=== PATIENT | female | born 1960 | race Caucasian/White ===

== ENCOUNTER 2016-06-30 19:19 | Emergency (ER) | payer OTHER ==
[~2016-06-30] VITALS: Ht 167.6 cm; Wt 73.9 kg
[~2016-06-30 19:19] MED LIST: BUS5 PO; GABA400C PO; LEVO0.124 PO; LISI5TAB18 PO; MECL-272 PO; METF1000 PO; SIMV40TA1 PO
[2016-06-30 19:51] VITALS: BP 127/77
--- NOTE | 2016-06-30 21:11 | NUR ---
PT TAKEN TO BED 5
--- NOTE | 2016-06-30 21:18 | NUR ---
56Y F BIB SPOUSE C/O OF MIGRAINE NGUYEN SINCE THIS AM. TOOK SOME PAIN MED BUT IT DIDNT HELP. V/S TAKEN WNL.
[2016-06-30] MEDS ORDERED: KETOROLAC 60 MG/2 ML VIAL IM ONE (21:25)
[2016-06-30] MEDS ORDERED: METOCLOPRAMIDE 10 MG/2 ML INJ VIAL IM ONE (21:25)
[2016-06-30 22:55] VITALS: BP 99/57
--- NOTE | 2016-06-30 22:55 | NUR ---
Patient discharged with v/s stable. Written and verbal after care instructions given and explained. Patient alert, oriented and verbalized understanding of instructions. Ambulatory with steady gait. All questions addressed prior to discharge. ID band removed. Patient advised to follow up with PMD. Rx of NAPROSYN AND REGLAN given. Patient educated on indication of medication including possible reaction and side effects. Opportunity to ask questions provided and answered.
== END 2016-06-30 22:55 | disposition home or self-care (01) ==
LOC: MED 19:19
DX: G43.909 Migraine, unspecified, not intractable, without status migrainosus (principal); E11.9 Type 2 diabetes mellitus without complications; I10 Essential (primary) hypertension; F17.200 Nicotine dependence, unspecified, uncomplicated; Z71.6 Tobacco abuse counseling; Z88.5 Allergy status to narcotic agent; Z88.8 Allergy status to other drugs, medicaments and biological substances; Z79.899 Other long term (current) drug therapy
CPT/HCPCS: 96372; 99284; J1885; J2765